=== PATIENT | female | born 1985 ===

== ENCOUNTER 2018-03-11 00:44 | Emergency (ER) | payer MEDICAID ==
[~2018-03-11] VITALS: Ht 165.1 cm; Wt 77.1 kg
[2018-03-11] MEDS ORDERED: EPIPEN 2-P0.3 MG/0.3 IM (05:05)
[2018-03-11] MEDS ORDERED: Prednisone20 MG PO (05:05)
== END 2018-03-11 05:14 | disposition home or self-care (01) ==
LOC: ER 00:44
DX: T78.3XXA Angioneurotic edema, initial encounter (principal); I10 Essential (primary) hypertension; Z88.8 Allergy status to other drugs, medicaments and biological substances
CPT/HCPCS: 96374; 99285-25; J2930